=== PATIENT | female | born 1945 | race Caucasian/White ===

== ENCOUNTER 2019-12-28 19:04 | Inpatient (IN) | payer MEDICARE, SELFPAY ==
[2019-12-28 19:18] VITALS: BP 168/81; PULSE 89; RESP 14; TEMP 36.2; O2SAT 96; BMI 30.7
[2019-12-28 20:01] LABS: Basophils % 0.3 %; Eosinophils % 0.4 %; Hematocrit 46.1 % (37.0-47.0); Hemoglobin 14.8 g/dL (11.5-15.3); Lymphocytes # 1.5 10^3/uL (0.8-4.8); Lymphocytes % 19.2 %; Mean Corpuscular HGB Conc 32.1 g/dL (30.0-36.0); Mean Corpuscular Hemoglobin 30.9 pg (28.0-34.0); Mean Corpuscular Volume 96.2 fL (81-99); Mean Platelet Volume 10.3 fL (7.4-10.4); Monocytes # 0.7 10^3/uL (0.2-0.9); Monocytes % 9.5 %; Neutrophils # 5.4 10^3/uL (1.8-7.7); Neutrophils % 70.3 %; Nucleated Red Blood Cells % 0 %; Platelet Count 198 10^3/cmm (130-400); Red Blood Count 4.79 10^6/uL (4.1-5.3); Red Cell Distribution Width 12.9 % (12.1-15.1); White Blood Count 7.7 10^3/uL (4.0-10.0)
[2019-12-28 20:17] LABS: Alanine Aminotransferase 17 U/L (0-33); Albumin Level 4.4 g/dL (3.5-5.2); Alkaline Phosphatase 47 IU/L (35-105); Anion Gap 19.1 (5-19); Aspartate Amino Transferase 16 U/L (0-32); Blood Urea Nitrogen 13 mg/dL (8-23); Calcium 10.1 mg/dL (8.5-10.5); Carbon Dioxide 30 mmol/L (22-29); Chloride 100 mmol/L (98-107); Globulin 2.5 g/dL (1.3-4.6); Glucose 130 mg/dL (65-115); Lipase 18 U/L (13-60); Osmolality Calculated 298 mOsm/kg (285-295); Potassium 4.1 mmol/L (3.5-5.1); Sodium 145 mmol/L (136-145); Total Bilirubin 0.9 mg/dL (0.15-1.2); Total Protein 6.9 g/dL (6.6-8.7)
[2019-12-28 21:16] VITALS: BP 152/86; PULSE 84; RESP 16; O2SAT 96
--- NOTE | 2019-12-28 21:38 | CTR_ITS ---
PROCEDURE INFORMATION: Exam: CT Abdomen And Pelvis With Contrast Exam date and time: 12/28/2019 10:25 PM Age: 74 years old Clinical indication: Abdominal pain; Generalized; Prior surgery; Surgery date: 6+ months; Surgery type: Colostomy, gb, appy; Patient HX: C/O abd pain w n/v; Additional info: Abdominal pain, nausea and vomiting. Prior bowel surgery TECHNIQUE: Imaging protocol: Computed tomography of the abdomen and pelvis with intravenous contrast. Radiation optimization: All CT scans at this facility use at least one of these dose optimization techniques: automated exposure control; mA and/or kV adjustment per patient size (includes targeted exams where dose is matched to clinical indication); or iterative reconstruction. Contrast material: OMNI 300; Contrast volume: 95 ml; Contrast route: 20G; COMPARISON: No relevant prior studies available. RADIATION DOSE METRICS: Total DLP: 1539.86 mGy-cm FINDINGS: Liver: Liver unremarkable. No visible hepatic mass or cystic structure. Gallbladder and bile ducts: Gallbladder contains at least 3 small gallstones. No gallbladder wall thickening or pericholecystic fluid. Moderate intra and extrahepatic biliary ectasia with the common bile duct measuring upwards of 12 mm. No visible choledocholithiasis, pancreatic head mass, or ampullary neoplasm. Potential distal common bile duct stricture/stenosis. Pancreas: Pancreas grossly unremarkable. No visible pancreatic ductal ectasia. Spleen: Two small splenic cyst most likely from old injury. Spleen otherwise normal. Adrenals: Adrenal glands unremarkable. Kidneys and ureters: Kidneys unremarkable. No hydronephrosis or perinephric fluid. Stomach and bowel: Extremely large left lower quadrant ventral hernia containing numerous colonic bowel loops to a colostomy. Ectatic loops of small bowel with fecalization of contents transition zone approximately low anterior pelvis near anterior abdominal suture lines. Decompressed distal jejunal and ileal loops. Adhesions anticipated etiology. Appendix: No evidence of appendicitis. Intraperitoneal space: No visible intraperitoneal ascites. Vasculature: Limited assessment lung bases reveals advanced coronary artery disease. Cardiac size upper limits of normal. No visible pericardial effusion. The abdominal aorta is nonaneurysmal but demonstrates advanced arterial sclerotic disease. Lymph nodes: Unremarkable. No enlarged lymph nodes. Bladder: Urinary bladder grossly unremarkable. Reproductive: Suspected status post hysterectomy. Bones/joints: Metal artifact from right total hip prosthesis limits assessment of the pelvis. Advanced degenerative disease and degenerative disc disease of the lumbar spine primary L3 through S1. Osteopenia. Facet arthrosis. Soft tissues: Left lower quadrant anterior abdominal wall mesh. The large ventral hernia has broken through the mesh. Other findings: Obesity. CT/CT abdomen pelvis w con* [id number] IMPRESSION: 1. Examination reveals evidence of a moderate grade partial small bowel obstruction transitioning at the approximate level of the distal jejunum. Transition zone approximately low anterior pelvis near the anterior abdominal suture line. 2. Extremely large left lower quadrant ventral hernia containing numerous colonic bowel loops to aid diverting colostomy. 3. Moderate intra and extrahepatic biliary ectasia. 4. Other nonurgent, nonemergent, chronic, and age related findings as detailed in text above. Radiation Dose CTDIVOL = (mGy): DLP = 1539.86 (mGy-cm)
[2019-12-28] MEDS: sodium chloride 0.9% 1,000 ML 999 ML IV (22:13)
[2019-12-28] MEDS: ondansetron 2 mg/ML SDV 2 mL 4 MG IVP (22:13)
[2019-12-28] MEDS: iohexol 300 mg/mL 100 mL Btl IV (22:35)
--- NOTE | 2019-12-28 23:13 | P.HP_ITS ---
Providers/Chief Complaint Primary Care Provider: Juan R Purvis DO Chief Complaint: upper abd and back pain History of Present Illness Maty Gama is a 74 year old female who carries history of colon cancer status post colectomy 1991 with diverting colostomy, type 2 diabetes, came in with chief complaint of abdominal pain. Patient is stating that she was in her usual state of health i.e. lives with her , independent for daily activities, has been tolerating her diet until this morning when she started experiencing abdominal pain. Her pain was 8/10 in the morning she was feeling nauseous, she did not experience any fever, chills but experienced one episode of vomiting when she arrived in the hospital, her vomitus contained bilious color and content. She did not notice any bleeding. Before this episode she juarez s been having loose stools as well, she is denying recent camping, use of antibiotics, blood in her stool. She has been noticing decreased output from her colostomy, she also get bowel movement on daily basis. Diagnosis in the ER revealed hypertension, afebrile status, EKG is pending, CT abdomen revealed moderate partial small bowel obstruction with increased ventral hernia content without incarceration Lactic acid normal There is concern of adhesion causing small bowel obstruction, Dr. Pompa has been notified Will put NG tube to suction and admit her to our medical/surgical floor Review of Systems ENMT: Denies: throat pain or uvular edema Card: Denies: chest pain or palpitations Resp: Denies: dyspnea GI: Reports: abdominal pain, nausea, vomiting and diarrhea : Denies: flank pain Musc: Denies: neck pain Skin/Breast: Reports: rash (Petechia purpura) and lesions Neuro: Denies: headache(s) Psych: Denies: anxiety Endo: Denies: polyuria Kasi/Lymph: Reports: easy bruising All/Imm: Denies: urticaria Medications/Allergies Home Medications Medication Instructions Recorded Confirmed Last Taken Type amlodipine 10 mg PO DAILY 12/28/19 12/28/19 12/28/19 History canagliflozin [Invokana] 300 mg PO DAILY 12/28/19 12/28/19 12/28/19 History insulin detemir U-100 [Levemir See Rx Instructions .ROUTE .COMPLEX 12/28/19 12/28/19 12/28/19 History FlexTouch U-100 Insuln] losartan 50 mg PO DAILY 12/28/19 12/28/19 12/28/19 History metformin 1,000 mg PO DAILY 12/28/19 12/28/19 12/28/19 History omeprazole 40 mg PO DAILY 12/28/19 12/28/19 12/28/19 History pravastatin 40 mg PO DAILY 12/28/19 12/28/19 12/28/19 History prednisone 40 mg PO DAILY 12/28/19 12/28/19 12/28/19 History sertraline [Zoloft] 25 mg PO DAILY 12/28/19 12/28/19 12/28/19 History triamcinolone acetonide See Rx Instructions .ROUTE .COMPLEX 12/28/19 12/28/19 12/28/19 History Allergies Allergy/AdvReac Type Severity Reaction Status Date / Time Sulfa (Sulfonamide Allergy ALGY-Rash Verified 12/28/19 21:54 Antibiotics) PFSH Acute PFSH: Medical History B12 deficiency Colorectal cancer Post resection and colostomy Degenerative joint disease Degenerative lumbar spine L3-S1 Hypertension Iron deficiency anemia Small bowel obstruction Type 2 diabetes mellitus Surgical History H/O colectomy H/O: hysterectomy History of total hip replacement Family History Brother Diabetes Denies family history of Cancer Social History Smoking and tobacco status: never smoked Alcohol intake: never Substance/Drug Use: never Household members: family Housing: House Vitals/I&O/Wt Last Vital Signs Temp 97.1 F L 12/28/19 19:18 Pulse 89 12/28/19 19:18 Resp 14 12/28/19 19:18 BP 168/81 12/28/19 19:18 Pulse Ox 96 12/28/19 19:18 Weight last 48 hrs Weight 86.183 kg Physical Exam Narrative: EXAM NARRATIVE: Head to toe examination Patient is sitting at the bedside without any active discomfort Obese elderly female S1, S2 without any signs of heart failure or murmur appreciated on auscultation Abdomen is distended, tender midepigastric and right lower quadrant area, colostomy bag draining feculent material, hyperactive bowel sounds, ventral hernia around stoma Neurologically nonfocal exam EOMI, PERRLA Bilateral breath sounds without any adventitious sounds No active restaurant distress Propine mood and affect Lower extremity shows linear skin rash which are nonpruritic but palpable, maculopapular rash Data : 12/28/19 19:49 12/28/19 19:49 A&P Assessment and plan (1) Partial small bowel obstruction: Status: Acute (2) Ventral hernia: Status: Acute (3) Skin rash: Status: Acute Additional A&P Information Partial small bowel obstruction Concern for adhesion to be the etiology because of transition zone Would place NG tube to decompress her stomach CT abdomen reveals bowel obstruction with increased ventral hernia content Analgesia with morphine and start bowel regimen once she is able to tolerate p.o. diet No electrolyte imbalance note Conservative management for now N.p.o., NG to suction We will start her on D5 half-normal Would avoid adding sliding scale to avoid hypoglycemia, I would feel much comfortable with hyperglycemia while patient is being managed in n.p.o. status than hypoglycemia. SCDs Skin rash: Nonpruritic palpable skin rash bilaterally Patient is not sure if she has been exposed to Theron leaves We will try topical steroid She recently finished prednisone 40 mg course, last dose was today Patient is stating that she has been having tachycardia more frequently, she is not sure if she was diagnosed with A. fib currently she is not on any anticoagulation or rate controlling medication SCDs and avoid DVT prophylaxis in case she will need surgical intervention because of adhesions causing SBO no sliding scale to avoid hypoglycemia Full code Attestations Medical Necessity Statement*: Anticipating stay in the hospital cross more than 2 midnights currently needs management for SBO Time Spent in Patient Care: (>than 50% of time spent in counselling and/or direct pt care on unit) . 50mins Coding Level of Care Code Acute Unified Communications Architect for Chg Fwd Diagnoses Partial small bowel obstruction K56.600 Ventral hernia K43.9 Skin rash R21
--- NOTE | 2019-12-28 23:38 | ED_ITS ---
HPI - Abdominal Pain General: Chief Complaint: Abdominal Pain Stated Complaint: upper abd and back pain Time Seen by Provider: 12/28/19 21:23 Source: patient and family Mode of arrival: ambulatory Limitations: no limitations History of Present Illness: HPI narrative: 74-year-old female patient with a history of diabetes mellitus, remote history of colon cancer status post bowel resection and diverting colostomy on the left complicated by a parastomal hernia. She presents to the emergency department with complaints of abdominal pain that started earlier today and has been worsening. The abdominal pain is in the upper abdomen and it radiates to the back. No fever, she has nausea but has only vomited once this evening while in the waiting room. She states her colostomy still functioning well. She does not think she had any questionable food intake. MD elicited complaint: abdominal pain Pertinent past history: other (colon cancer s/p bowel resection and colostomy) Location: Epigastric, LUQ and RUQ Severity: severe Quality: cramping Radiation: back Associated Symptoms: Reports GI cramping, nausea and vomiting; Denies chills, dysuria and fever(s) Review of Systems General: Reports: 10 or more systems reviewed and unremarkable except in HPI and below Const: Denies: fever(s), chills or body aches Card: Denies: palpitations, irregular heart rhythm, edema or swelling of feet/ankles Resp: Denies: dyspnea, productive cough or non-productive cough GI: Reports: nausea, vomiting and GI cramping : Denies: flank pain, difficulty voiding, dysuria, urinary frequency, urinary urgency or urinary hesitancy Musc: Denies: neck pain, back pain or extremity swelling Skin/Breast: Denies: rash, pruritus or erythema Neuro: Denies: headache(s), numbness in extremities or weakness in extremities Endo: Denies: polyuria, polydipsia or tired all the time [facility] PFSH: Medical History (Updated 12/28/19 @ 23:48 [place] Kenny Walden [place] [facility] [place] B[place] Colorectal cancer Post resection and colostomy Degenerative joint disease Degenerative lumbar spine L3-S1 Hypertension Iron deficiency anemia Small bowel obstruction Type 2 diabetes mellitus Surgical History (Updated 12/28/19 @ 23:16 by Kayce Del Toro MD) H/O colectomy H/O: hysterectomy History of total hip replacement Family History (Updated 12/28/19 @ 23:16 by Kayce Del Toro MD) Brother Diabetes Denies family history of Cancer Social History (Updated 12/28/19 @ 23:17 by Kayce Del Toro MD) Smoking and tobacco status: never smoked Alcohol intake: never Substance/Drug Use: never Household members: family Housing: House Physical Exam Const: COMMON NORMALS: no acute distress, average body habitus, patient oriented x3, no limitations, healthy appearing, alert and well nourished HENMT: COMMON NORMALS: normocephalic, atraumatic and moist oral mucous membranes HEAD & SCALP: normocephalic and atraumatic Neck/C-Spine: COMMON NORMALS: no meningeal signs and no JVD Resp: COMMON NORMALS: normal respiratory effort, No retractions, No use of accessory muscles, clear to auscultation bilaterally and percussion normal AUSCULTATION: clear to auscultation bilaterally PERCUSSION: percussion normal Cardio: COMMON NORMALS: no JVD, regular rate, regular rhythm, S1 normal heart sound present, S2 normal heart sound present, No gallops present (Cardio), No clicks present (Cardio), No murmurs present (Cardio), No rub (Cardio) and Peripheral pulses 2+ throughout RATE: regular rate RHYTHM: regular rhythm HEART SOUNDS: S1 normal heart sound present and S2 normal heart sound present PERIPHERAL PULSES: Peripheral pulses 2+ throughout GI: COMMON NORMALS: Soft to palpation, No hepatosplenomegaly present, no masses and no bruits INSPECTION: Yes visible herniation AUSCULTATION: Yes Hyperactive bowel sounds present PALPATION: Yes Soft to palpation, Yes Tenderness to palpation present (GI) (periumbilical) and Yes No hepatosplenomegaly present OTHER: Colostomy in her left lower quadrant. There is an obvious large parastomal hernia. She is tender in the periumbilical area. : COMMON NORMALS: Yes no CVA tenderness BLADDER/KIDNEY EXAM: Yes no CVA tenderness Back/Pelvis: COMMON NORMALS: no CVA tenderness Extremity: COMMON NORMALS: normal to inspection, full ROM, capillary refill normal, no calf tenderness and no pedal edema Neuro: COMMON NORMALS: patient oriented x3 SENSORIUM/ORIENTATION: Yes alert MENINGEAL SIGNS: Yes no meningeal signs Skin: COMMON NORMALS: no rashes or lesions noted, no wounds, turgor normal, no jaundice, no petechiae and no mottling GENERAL SKIN EXAM: no rashes or lesions noted and turgor normal Course Reevaluation(s): Reevaluation #1: Discussed her lab and imaging findings with her. She has a partial small bowel obstruction. She will need an NG tube to low intermittent suction and evaluation by surgeon. I advised that she will need to be admitted for further work-up. She voiced understanding and she is in agreement with the plan Time: 23:15 Consultations: Consultation #1: Discussed the patient with the hospitalist, and he kindly accepted the patient to his service Time: 23:10 Consultation #2: Discussed the patient with Dr. Pompa, surgeon. He agrees with admitting the patient to the hospitalist service and he will see the patient in the morning Time: 23:19 Vital Signs: Vital signs: Vital Signs Temperature 97.1 F L 12/28/19 19:18 Pulse Rate 89 12/28/19 19:18 Respiratory Rate 14 12/28/19 19:18 Blood Pressure 168/81 12/28/19 19:18 Pulse Oximetry 96 12/28/19 19:18 MDM - Abdominal Pain MDM Narrative: Medical decision making narrative: 74-year-old female patient with a partial small bowel obstruction. She is admitted to the hospitalist service and will also be evaluated by the surgeon in the morning. Medical Records: Attestation: I reviewed the patient's medical records. Lab Data: Attestation: I reviewed the patient's lab results. Labs: Lab Results 12/28/19 12/28/19 Range/Units 19:49 19:49 WBC 7.7 (4.0-10.0) 10^3/ uL RBC 4.79 (4.1-5.3) 10^6/u L Hgb 14.8 (11.5-15.3) g/dL Hct 46.1 (37.0-47.0) % MCV 96.2 (81-99) fL MCH 30.9 (28.0-34.0) pg MCHC 32.1 (30.0-36.0) g/dL RDW 12.9 (12.1-15.1) % Plt Count 198 (130-400) 10^3/c mm MPV 10.3 (7.4-10.4) fL Neut % (Auto) 70.3 % Lymph % (Auto) 19.2 % Bonner % (Auto) 9.5 % Eos % (Auto) 0.4 % Baso % (Auto) 0.3 % Neut # (Auto) 5.4 (1.8-7.7) 10^3/u L Lymph # (Auto) 1.5 (0.8-4.8) 10^3/u L Bonner # (Auto) 0.7 (0.2-0.9) 10^3/u L Eos # (Auto) 0.0 (0.0-0.8) 10^3/u L Baso # (Auto) 0.0 (0.0-0.1) 10^3/u L Nucleated RBC % (a uto) 0 % Nucleated RBCs # 0.0 /100WBC Sodium 145 (136-145) mmol/L Potassium 4.1 (3.5-5.1) mmol/L Chloride 100 (98-107) mmol/L Carbon Dioxide 30 H (22-29) mmol/L Anion Gap 19.1 H (5-19) BUN 13 (8-23) mg/dL Creatinine 0.7 (0.5-0.9) mg/dL Glucose 130 H (65-115) mg/dL Calculated Osmolal ity 298 H (285-295) mOsm/k g Calcium 10.1 (8.5-10.5) mg/dL Total Bilirubin 0.9 (0.15-1.2) mg/dL AST 16 (0-32) U/L ALT 17 (0-33) U/L Alkaline Phosphata se 47 (35-105) IU/L Total Protein 6.9 (6.6-8.7) g/dL Albumin 4.4 (3.5-5.2) g/dL Globulin 2.5 (1.3-4.6) g/dL Lipase 18 (13-60) U/L Imaging Data ^: CT Abd/Pel: Radiologist's impression: [address] [address] [address] Scan Report Signed Patient: Jolie GamaSharyn #: [id number] : 6Acct#:[id number] Age/Sex: 74 / FADM Date: 12/28/19 Loc: ERRoom/Bed: Attending Dr: Ordering Provider/Ordering MD: Kenny Walden MD, SINCERE Date of Service: 12/28/19 Procedure(s): CT abdomen pelvis w con* [id number] Accession Number(s): [id number] Report Number: [id number] PROCEDURE INFORMATION: Exam: CT Abdomen And Pelvis With Contrast Exam date and time: 12/28/2019 10:25 PM Age: 74 years old Clinical indication: Abdominal pain; Generalized; Prior surgery; Surgery date: 6+ months; Surgery type: Colostomy, gb, appy; Patient HX: C/O abd pain w n/v; Additional info: Abdominal pain, nausea and vomiting. Prior bowel surgery TECHNIQUE: Imaging protocol: Computed tomography of the abdomen and pelvis with intravenous contrast. Radiation optimization: All CT scans at this facility use at least one of these dose optimization techniques: automated exposure control; mA and/or kV adjustment per patient size (includes targeted exams where dose is matched to clinical indication); or iterative reconstruction. Contrast material: OMNI 300; Contrast volume: 95 ml; Contrast route: 20G; COMPARISON: No relevant prior studies available. RADIATION DOSE METRICS: Total DLP: 1539.86 mGy-cm FINDINGS: Liver: Liver unremarkable. No visible hepatic mass or cystic structure. Gallbladder and bile ducts: Gallbladder contains at least 3 small gallstones. No gallbladder wall thickening or pericholecystic fluid. Moderate intra and extrahepatic biliary ectasia with the common bile duct measuring upwards of 12 mm. No visible choledocholithiasis, pancreatic head mass, or ampullary neoplasm. Potential distal common bile duct stricture/stenosis. Pancreas: Pancreas grossly unremarkable. No visible pancreatic ductal ectasia. Spleen: Two small splenic cyst most likely from old injury. Spleen otherwise normal. Adrenals: Adrenal glands unremarkable. Kidneys and ureters: Kidneys unremarkable. No hydronephrosis or perinephric fluid. Stomach and bowel: Extremely large left lower quadrant ventral hernia containing numerous colonic bowel loops to a colostomy. Ectatic loops of small bowel with fecalization of contents transition zone approximately low anterior pelvis near anterior abdominal suture lines. Decompressed distal jejunal and ileal loops. Adhesions anticipated etiology. Appendix: No evidence of appendicitis. Intraperitoneal space: No visible intraperitoneal ascites. Vasculature: Limited assessment lung bases reveals advanced coronary artery disease. Cardiac size upper limits of normal. No visible pericardial effusion. The abdominal aorta is nonaneurysmal but demonstrates advanced arterial sclerotic disease. Lymph nodes: Unremarkable. No enlarged lymph nodes. Bladder: Urinary bladder grossly unremarkable. Reproductive: Suspected status post hysterectomy. Bones/joints: Metal artifact from right total hip prosthesis limits assessment of the pelvis. Advanced degenerative disease and degenerative disc disease of the lumbar spine primary L3 through S1. Osteopenia. Facet arthrosis. Soft tissues: Left lower quadrant anterior abdominal wall mesh. The large ventral hernia has broken through the mesh. Other findings: Obesity. CT/CT abdomen pelvis w con* [id number] IMPRESSION: 1. Examination reveals evidence of a moderate grade partial small bowel obstruction transitioning at the approximate level of the distal jejunum. Transition zone approximately low anterior pelvis near the anterior abdominal suture line. 2. Extremely large left lower quadrant ventral hernia containing numerous colonic bowel loops to aid diverting colostomy. 3. Moderate intra and extrahepatic biliary ectasia. 4. Other nonurgent, nonemergent, chronic, and age related findings as detailed in text above. Radiation Dose CTDIVOL = (mGy): DLP = 1539.86 (mGy-cm) Dictated By:Denny Mccray Signed By:Denny MccraySigncarlo Date/Time:12/28/192253 DD/ 52 Discharge Plan Discharge Patient Disposition: Admitted As Inpatient Clinical Impression: Partial small bowel obstruction Parastomal hernia Qualifiers: Obstruction and gangrene presence: without obstruction or gangrene Qualified Co de(s): K43.5 - Parastomal hernia without obstruction or gangrene Condition: Stable Coding Level of Care Code ED Manager Of Customer Billing for Pravin Valerio
[2019-12-28 23:46] VITALS: BP 158/84; PULSE 88; RESP 16; O2SAT 97
[2019-12-29] VITALS (7 sets, daily range): BP systolic 132–166; BP diastolic 56–83; PULSE 72–93; RESP 16–18; TEMP 36.7–37.3; O2SAT 91–96
[2019-12-29 00:53] LABS: Bacteria Urine TRACE; Bilirubin Urine Neg (NEGATIVE); Blood Urine Neg (Negative); Glucose Urine UA 4+ (Normal); Ketones Urine Negative (Negative); Leukocyte Esterase Urine Negative (Negative); Nitrate Urine Negative (Negative); Protein Urine Neg (Negative); RBC Urine RARE /hpf (0-2); Squamous Epithelial Cell Urine RARE (0-5); Urine Appearance Clear (CLEAR); Urine Color Yellow (Yellow); Urobilinogen Urine Norm (Negative); WBC Urine RARE /hpf (0-5); pH Urine 8 (5-7)
[2019-12-29] MEDS: dextrose 5%-sod chloride 0.45% 1,000 ML 30 ML IV ×2 (03:06→17:51)
--- NOTE | 2019-12-29 09:26 | PC.CHAP ---
Pastoral Care Encounter/Spiritual Assessment Type of Contact [] Declined principal security architect visit [] Patient/Family/Request visit [] Outpatient visit [] Follow-up visit [] Physician referral [] Code/Alert [x] Routine visit [] Staff referral [] Actively dying [] Patient sleeping [] Family support [] [] Out of room [] Palliative care [] [] Receiving care in room [] Pre-surgical visit [] Trauma [] Long length of stay [] ICU visit [] Other: Relational/Emotional Strength [] Patient feels connected with others/family/visitors/staff [] Distress [] Loneliness/isolation [] Abandonment Spirituality of Patient [] Person of Monalisa [] Attends Sabianist of their Monalisa [] Believes in Prayer [] Reads Bible or Episcopalian materials [] There are Spiritual issues to be addressed Devops Developer Interventions [x] Prayer [] Active listening [] Non-anxious presence [] Spiritual/emotional support [] Crisis/trauma care [] Spiritual counseling [] Bereavement support [] Provided bereavement packet [] Provided Bible/devotional materials [] Provided toy/stuffed animal, coloring book to patient or family member [] Provided Communion [] Anointing/[place] [] Salvation [x] Completed spiritual assessment [] Other: Impact on Illness or Injury [] Angry [] Fearful [] Anxious [] Often cries [] Exhaustion [] Unable to work [] Unable to attend faith [] Unable to walk/stand [] Unable to read [] Unable to drive [] Unable to eat/drink [] Unable to sleep [] Unable to be with family [] Patient intubated [] Other: Summary Patient feeling better, feels issues are being addressed Time spent with patient 10 min
[2019-12-29 11:50] LABS: Glucose Point of Care 184 mg/dL (70-110)
--- NOTE | 2019-12-29 13:37 | PM.CONSULT ---
Providers/Reason For Consult Consulting Physican/Specialty*: Small bowel obstruction requiring continued inpatient hospitalization to ensure resolution Reason for Consult*: Bowel obstruction Attending Physician: Vikki Stone MD Primary Care Provider: Juan R Purvis DO History of Present Illness History of Present Illness Maty Gama is a 74 year old female who presented to the ER last night with generalized abdominal pain. Patient states that she had a colectomy for colorectal cancer in 1991 with end colostomy. She subsequently developed a parastomal hernia which was repaired about 15 years ago. She is not had any hospitalization for small bowel obstruction. At present she denies any nausea or vomiting, NG output was 500 cc since hospitalization. Patient's ostomy is functioning Review of Systems General: Reports: 10 or more systems reviewed and unremarkable except in HPI and below Meds/Allergies Home Medications and Allergies Home Medications Medication Instructions Recorded Confirmed Last Taken Type amlodipine 10 mg PO DAILY 12/28/19 12/28/19 12/28/19 History canagliflozin [Invokana] 300 mg PO DAILY 12/28/19 12/28/19 12/28/19 History insulin detemir U-100 [Levemir See Rx Instructions .ROUTE .COMPLEX 12/28/19 12/28/19 12/28/19 History FlexTouch U-100 Insuln] losartan 50 mg PO DAILY 12/28/19 12/28/19 12/28/19 History metformin 1,000 mg PO DAILY 12/28/19 12/28/19 12/28/19 History omeprazole 40 mg PO DAILY 12/28/19 12/28/19 12/28/19 History pravastatin 40 mg PO DAILY 12/28/19 12/28/19 12/28/19 History prednisone 40 mg PO DAILY 12/28/19 12/28/19 12/28/19 History sertraline [Zoloft] 25 mg PO DAILY 12/28/19 12/28/19 12/28/19 History triamcinolone acetonide See Rx Instructions .ROUTE .COMPLEX 12/28/19 12/28/19 12/28/19 History Allergies Allergy/AdvReac Type Severity Reaction Status Date / Time Sulfa (Sulfonamide Allergy ALGY-Rash Verified 12/28/19 21:54 Antibiotics) Current Medications Current Medications Generic Name Dose Route Start Last Admin Trade Name Freq PRN Reason Stop Dose Admin Dextrose/Sodium Chloride 1,000 mls @ 30 mls/hr 12/29/19 02:13 12/29/19 03:06 Dextrose 5%-Sod Chloride 0.45% IV 30 mls/hr .Q24H ALYSSA Administration Insulin Aspart 0 unit 12/29/19 12:00 12/29/19 12:31 Novolog SUBCUT 4 unit TIDWM ALYSSA Administration Protocol Senna/Docusate Sodium 1 tab 12/29/19 09:00 12/29/19 03:07 Senna-S PO Not Given DAILY ALYSSA Triamcinolone Acetonide 1 applic 12/29/19 09:00 12/29/19 08:43 Triamcinolone 0.1% Oint TOPICAL 1 applic BID ALYSSA Administration PFSH Acute PFSH: Medical History B12 deficiency Colorectal cancer Post resection and colostomy Degenerative joint disease Degenerative lumbar spine L3-S1 Hypertension Iron deficiency anemia Small bowel obstruction Type 2 diabetes mellitus Surgical History H/O colectomy H/O: hysterectomy History of total hip replacement Family History Brother Diabetes Denies family history of Cancer Social History Smoking and tobacco status: never smoked Alcohol intake: never Substance/Drug Use: never Household members: family Housing: House Vitals/I&O/Wt Last Vital Signs Temp 99.1 F 12/29/19 12:00 Pulse 80 12/29/19 12:00 Resp 18 12/29/19 12:00 BP 132/56 12/29/19 12:00 Pulse Ox 92 12/29/19 12:00 12/28/19 12/29/19 12/29/19 22:59 06:59 14:59 Intake Total 120 / 120 Output Total 1200 / 1200 Balance -1200 / -1200 120 / 120 Weight last 48 hrs Weight 190 lb Physical Exam Narrative: EXAM NARRATIVE: HEENT: Normocephalic Eye: Sclera /conjunctiva normal Respiratory and chest: Bilateral clear breath sounds on auscultation Cardiovascular: Normal S1 and S2 heart sounds Abdomen: Soft to palpation, large parastomal hernia in the left lower quadrant, colostomy has small amount of output Neurological: Oriented to place person and time Skin: Intact, no lesions appreciated on gross exam Urinary Catheter Management^: 2-way Urethral: Cath Placed During This Visit: yes Urinary Catheter Date of Insertion: 12/29/19 Urinary Catheter Time of Insertion: 03:00 A&P Assessment and plan (1) Partial small bowel obstruction: Likely secondary to adhesions NG tube removed with suction Repeat abdominal series in the morning Hopefully patient's small bowel obstruction will resolve with conservative measures Milk of molasses enema since there was large amount of stool noted within the colon Status: Acute (2) Parastomal hernia: Chronic containing large amount of bowel, not the site of the obstruction. Continue observation Status: Acute Qualifiers: Obstruction and gangrene presence: without obstruction or gangrene Qualified Code(s): K43.5 - Parastomal hernia without obstruction or gangrene Coding Level of Care Code Acute Community Relations Specialist for [facility] Fwd Diagnoses Partial small bowel obstruction K56.600 Parastomal hernia K43.5 Obstruction and gangrene presence: without obstruction or gangrene
[2019-12-29 16:52] LABS: Glucose Point of Care 143 mg/dL (70-110)
--- NOTE | 2019-12-29 17:41 | PM.PN ---
Subjective Subjective: Interval history: Patient feeling better from an abdominal discomfort. Has some irritation in her throat from NG tube. Asking for ice chips. NG-tube remains to intermittent suction. Vitals/I&O/Wt Last Vital Signs Temp 98.6 F 12/29/19 15:00 Pulse 77 12/29/19 15:00 Resp 18 12/29/19 15:00 BP 134/69 12/29/19 15:00 Pulse Ox 91 12/29/19 15:00 12/29/19 12/29/19 12/29/19 06:59 14:59 22:59 Intake Total 120 / 120 Output Total 1200 / 1200 900 / 900 Balance -1200 / -1200 -780 / -780 Weight last 48 hrs Weight 86.183 kg Physical Exam Const: OTHER: Alert, oriented x3, cooperative HENMT: OTHER: NG tube in place to suction Neck/C-Spine: OTHER: Supple Resp: OTHER: Clear to auscultation bilaterally Cardio: OTHER: Regular rate and rhythm GI: OTHER: Abdomen soft, obese. Has large parastomal hernia around ostomy site. This is not tender focally but generally uncomfortable for her. Multiple surgical scars. Some erythema noted under the pannus of the hernia : OTHER: Emery noted Extremity: NARRATIVE EXTREMITY EXAM: No cyanosis, clubbing or edema, no acute synovitis Neuro: OTHER: Face symmetric, speech clear, moves all extremities Psych: OTHER: Normal affect Skin: OTHER: Rash to legs Urinary Catheter Management^: 2-way Urethral: Cath Placed During This Visit: yes Urinary Catheter Date of Insertion: 12/29/19 Urinary Catheter Time of Insertion: 03:00 Data : 12/28/19 19:49 12/28/19 19:49 A&P Assessment and plan (1) Partial small bowel obstruction: Status: Acute (2) Parastomal hernia: Status: Chronic Qualifiers: Obstruction and gangrene presence: without obstruction or gangrene Qualified Code(s): K43.5 - Parastomal hernia without obstruction or gangrene (3) Colorectal cancer: Status: Chronic (4) Type 2 diabetes mellitus: Status: Chronic Qualifiers: Diabetes mellitus assistant terminal manager insulin use: without assistant terminal manager use Diabetes mellitus complication status: without complication Qualified Code(s): E11.9 - Type 2 diabetes mellitus without complications (5) Iron deficiency anemia: Status: Chronic Qualifiers: Iron deficiency anemia type: unspecified iron deficiency Qualified Code(s): D50.9 - Iron deficiency anemia, unspecified (6) B12 deficiency: Status: Chronic (7) Hypertension: Status: Chronic Qualifiers: Hypertension type: essential hypertension Qualified Code(s): I10 - Essential (primary) hypertension (8) Hyperlipidemia: Statin Status: Chronic Qualifiers: Hyperlipidemia type: unspecified Qualified Code(s): E78.5 - Hyperlipidemia, unspecified (9) Depression: Sertraline Status: Chronic Qualifiers: Depression Type: unspecified Qualified Code(s): F32.9 - Major depressive disorder, single episode, unspecified (10) Skin rash: Completed short course of prednisone on day of admission for this rash Status: Acute Additional A&P Information Appreciate Dr. Pompa's input To be given some enemas via ostomy site Continue NG tube placement We will add ice chips and some viscous lidocaine if that does not help her throat Emery catheter was placed with reason not indicated that I can find. I believe it is because she was placed in bed rest and having difficulty getting up with NG tube in place combined with obstruction. Remove as soon as able. Sliding scale insulin for diabetes currently, will hold on long-acting until taking p.o. Continue steroid cream to rash on legs Add PPI p.o. or IV H2 radha if it is still in shortage All home oral medications are otherwise held Supportive care otherwise IPC's for DVT prophylaxis presently Full code Attestations Medical Necessity Statement*: Requires ongoing inpatient stay for management of small bowel obstruction with plans as noted Coding Level of Care Code Acute Law Firm Consultant for [facility] Fwd Diagnoses Partial small bowel obstruction K56.600 Parastomal hernia K43.5 Obstruction and gangrene presence: without obstruction or gangrene Colorectal cancer C19 Type 2 diabetes mellitus E11.9 Diabetes mellitus fci insulin use: without fci use Diabetes mellitus complication status: without complication Iron deficiency anemia D50.9 Iron deficiency anemia type: unspecified iron deficiency B12 deficiency E53.8 Hypertension I10 Hypertension type: essential hypertension Hyperlipidemia E78.5 Hyperlipidemia type: unspecified Depression F32.9 Depression Type: unspecified Skin rash R21
[2019-12-29 22:34] LABS: Glucose Point of Care 118 mg/dL (70-110)
[2019-12-30] VITALS (7 sets, daily range): BP systolic 132–162; BP diastolic 60–76; PULSE 70–79; RESP 16–18; TEMP 36.8–37.2; O2SAT 92–96
[2019-12-30 05:28] LABS: Basophils % 0.5 %; Eosinophils # 0.1 10^3/uL (0.0-0.8); Eosinophils % 2.1 %; Hematocrit 40.7 % (37.0-47.0); Hemoglobin 12.8 g/dL (11.5-15.3); Lymphocytes # 1.3 10^3/uL (0.8-4.8); Lymphocytes % 23.4 %; Mean Corpuscular HGB Conc 31.4 g/dL (30.0-36.0); Mean Corpuscular Hemoglobin 30.8 pg (28.0-34.0); Mean Corpuscular Volume 97.8 fL (81-99); Mean Platelet Volume 10.6 fL (7.4-10.4); Monocytes # 0.6 10^3/uL (0.2-0.9); Monocytes % 10.7 %; Neutrophils # 3.6 10^3/uL (1.8-7.7); Neutrophils % 62.8 %; Nucleated Red Blood Cells % 0 %; Platelet Count 157 10^3/cmm (130-400); Red Blood Count 4.16 10^6/uL (4.1-5.3); Red Cell Distribution Width 13.3 % (12.1-15.1); White Blood Count 5.7 10^3/uL (4.0-10.0)
[2019-12-30 06:10] LABS: Anion Gap 15.3 (5-19); Blood Urea Nitrogen 14 mg/dL (8-23); Calcium 8.5 mg/dL (8.5-10.5); Carbon Dioxide 26 mmol/L (22-29); Chloride 106 mmol/L (98-107); Glucose 134 mg/dL (65-115); Osmolality Calculated 296 mOsm/kg (285-295); Potassium 3.3 mmol/L (3.5-5.1); Sodium 144 mmol/L (136-145)
--- NOTE | 2019-12-30 06:14 | XRR_ITS ---
PROCEDURE INFORMATION: Exam: XR Abdomen, 2 Views Exam date and time: 12/30/2019 6:17 AM Age: 74 years old Clinical indication: Other: Sbo; Prior surgery; Surgery date: 6+ months; Surgery type: Colostomy, gb, appendectomy TECHNIQUE: Imaging protocol: XR of the abdomen. Views: 2 Views. COMPARISON: CT abdomen pelvis w con* [id number] 12/28/2019 10:24 PM FINDINGS: Tubes, catheters and devices: Termination of feeding tube in the distal gastric body. Gastrointestinal tract: Poor visualization of CT detected small-bowel dilatation, in part due to patient body habitus . Organs: Cholelithiasis. Bones/joints: Right hip arthroplasty. Degenerative change and mild lumbar levoscoliosis. XR/XR abdomen min 2V [id number] IMPRESSION: Termination of feeding tube in the distal gastric body.
[2019-12-30 06:55] LABS: Glucose Point of Care 122 mg/dL (70-110)
[2019-12-30] MEDS: pantoprazole 40 mg SDV IVP (09:03)
[2019-12-30] MEDS: magnesium citrate Btl 296 mL PO ×2 (10:42→18:08)
[2019-12-30 11:17] LABS: Glucose Point of Care 111 mg/dL (70-110)
--- NOTE | 2019-12-30 11:42 | PM.PN ---
Subjective Subjective: Interval history: Patient has been doing well, abdominal pain is significantly reduced, no significant output from the NG tube . Responded with improved stool output after the enema was placed Vitals/I&O/Wt Last Vital Signs Temp 98.2 F 12/30/19 11:07 Pulse 79 12/30/19 11:07 Resp 18 12/30/19 11:07 BP 152/70 12/30/19 11:07 Pulse Ox 95 12/30/19 11:07 12/29/19 12/30/19 12/30/19 22:59 06:59 14:59 Intake Total 442.5 / 562.5 Output Total 250 / 1700 550 / 1700 Balance 192.5 / -1137.5 -550 / -1137.5 Weight last 48 hrs Weight 190 lb Physical Exam Narrative: EXAM NARRATIVE: Abdomen: Soft, nondistended, minimally tender, ostomy is functioning Urinary Catheter Management^: 2-way Urethral: Cath Placed During This Visit: yes Reason for Continuing Indwelling Catheter: Other Urinary Catheter Date of Insertion: 12/29/19 Urinary Catheter Time of Insertion: 03:00 Data : 12/30/19 04:21 12/30/19 04:21 A&P Assessment and plan (1) Partial small bowel obstruction: Likely secondary to adhesions Clamp NG tube today Start clear liquid diet 1 bottle magnesium citrate Milk of molasses enema through colostomy Status: Acute (2) Parastomal hernia: Chronic containing large amount of bowel, not the site of the obstruction. Continue observation Status: Chronic Qualifiers: Obstruction and gangrene presence: without obstruction or gangrene Qualified Code(s): K43.5 - Parastomal hernia without obstruction or gangrene Attestations Medical Necessity Statement*: Small bowel obstruction requiring continued inpatient stay, appears to be improving Coding Level of Care Code Acute Chemical Dependency Therapist for [facility] Diagnoses Partial small bowel obstruction K56.600 Parastomal hernia K43.5 Obstruction and gangrene presence: without obstruction or gangrene
--- NOTE | 2019-12-30 14:06 | P.PN_ITS ---
Subjective Subjective: Interval history: Feels a lot better today. Has had good output from her ostomy. Pain is improved. Vitals/I&O/Wt Last Vital Signs Temp 98.2 F 12/30/19 11:07 Pulse 79 12/30/19 11:07 Resp 18 12/30/19 11:07 BP 152/70 12/30/19 11:07 Pulse Ox 95 12/30/19 11:07 12/29/19 12/30/19 12/30/19 22:59 06:59 14:59 Intake Total 442.5 / 562.5 Output Total 250 / 1150 550 / 1700 Balance 192.5 / -587.5 -550 / -1137.5 Weight last 48 hrs Weight 86.183 kg Physical Exam Const: OTHER: Alert, oriented x3, cooperative HENMT: OTHER: NG tube in place to suction Neck/C-Spine: OTHER: Supple Resp: OTHER: Clear to auscultation bilaterally Cardio: OTHER: Regular rate and rhythm GI: OTHER: Abdomen soft, obese. Parastomal hernia is softer today and stool output in the ostomy is not as hard. : OTHER: Emery noted Extremity: NARRATIVE EXTREMITY EXAM: No cyanosis, clubbing or edema, no acute synovitis Neuro: OTHER: Face symmetric, speech clear, moves all extremities Psych: OTHER: Normal affect Skin: OTHER: Rash to legs without change Urinary Catheter Management^: 2-way Urethral: Cath Placed During This Visit: yes Reason for Continuing Indwelling Catheter: Other Urinary Catheter Date of Insertion: 12/29/19 Urinary Catheter Time of Insertion: 03:00 Data : 12/30/19 04:21 12/30/19 04:21 A&P Assessment and plan (1) Partial small bowel obstruction: Status: Acute (2) Parastomal hernia: Status: Chronic Qualifiers: Obstruction and gangrene presence: without obstruction or gangrene Qualified Code(s): K43.5 - Parastomal hernia without obstruction or gangrene (3) Colorectal cancer: Status: Chronic (4) Type 2 diabetes mellitus: Status: Chronic Qualifiers: Diabetes mellitus care home insulin use: without care home use Diabetes mellitus complication status: without complication Qualified Code(s): E11.9 - Type 2 diabetes mellitus without complications (5) Iron deficiency anemia: Status: Chronic Qualifiers: Iron deficiency anemia type: unspecified iron deficiency Qualified Code(s): D50.9 - Iron deficiency anemia, unspecified (6) B12 deficiency: Status: Chronic (7) Hypertension: Status: Chronic Qualifiers: Hypertension type: essential hypertension Qualified Code(s): I10 - Essential (primary) hypertension (8) Hyperlipidemia: Statin Status: Chronic Qualifiers: Hyperlipidemia type: unspecified Qualified Code(s): E78.5 - Hyperlipidemia, unspecified (9) Depression: Sertraline Status: Chronic Qualifiers: Depression Type: unspecified Qualified Code(s): F32.9 - Major depressive disorder, single episode, unspecified (10) Skin rash: Completed short course of prednisone on day of admission for this rash Status: Acute Additional A&P Information Dr. Pompa following, getting additional enema/laxative today NG tube clamped and clear liquid diet to start If doing okay in the morning need to discontinue Emery catheter since she has improved so much Sliding scale insulin for diabetes currently, monitor need to adjust insulin therapy with oral intake Adjust IV fluids for oral intake Continue steroid cream to rash on legs IV PPI See if some potassium today All home oral medications are otherwise still held Supportive care otherwise IPC's for DVT prophylaxis presently Plans discussed with patient as well as with Dr. Pompa Full code Attestations Medical Necessity Statement*: Requires ongoing inpatient care for continued la xative therapy, diet advancement and monitoring for recurrent problems with obstruction Coding Level of Care Code Acute Certified Shorthand Reporter for [facility] Fwd Diagnoses Partial small bowel obstruction K56.600 Parastomal hernia K43.5 Obstruction and gangrene presence: without obstruction or gangrene Colorectal cancer C19 Type 2 diabetes mellitus E11.9 Diabetes mellitus intermediate accountant insulin use: without intermediate accountant use Diabetes mellitus complication status: without complication Iron deficiency anemia D50.9 Iron deficiency anemia type: unspecified iron deficiency B12 deficiency E53.8 Hypertension I10 Hypertension type: essential hypertension Hyperlipidemia E78.5 Hyperlipidemia type: unspecified Depression F32.9 Depression Type: unspecified Skin rash R21
[2019-12-30 16:55] LABS: Glucose Point of Care 132 mg/dL (70-110)
[2019-12-30 21:23] LABS: Glucose Point of Care 168 mg/dL (70-110)
[2019-12-30] MEDS: D5-NS 0.45% + KCL 20 mEq 20 MEQ/1,000 ML BAG 75 MEQ IV (23:34)
[2019-12-30] MEDS: lidocaine 2% viscous 15 mL UDC 5 ML MUCOUS MEM (23:34)
[2019-12-31 03:40] VITALS: BP 137/68; PULSE 69; RESP 18; TEMP 37.2; O2SAT 93
[2019-12-31 06:13] LABS: Glucose Point of Care 155 mg/dL (70-110)
[2019-12-31 07:44] VITALS: BP 153/71; PULSE 76; RESP 16; TEMP 36.8; O2SAT 91
--- NOTE | 2019-12-31 07:57 | P.PN_ITS ---
Subjective Subjective: Interval history: Patient denies any abdominal pain, feels a lot better, had significant output from the ostomy Vitals/I&O/Wt Last Vital Signs Temp 98.2 F 12/31/19 07:44 Pulse 76 12/31/19 07:44 Resp 16 12/31/19 07:44 BP 153/71 12/31/19 07:44 Pulse Ox 91 12/31/19 07:44 12/30/19 12/31/19 12/31/19 22:59 06:59 14:59 Intake Total 480 / 800 Output Total 4100 / 5000 900 / 5000 Balance -4100 / -4200 -420 / -4200 Physical Exam Narrative: EXAM NARRATIVE: Abdomen: Soft, nontender, less distended, large parastomal hernia with ostomy functioning well, has liquid stools in the bag Urinary Catheter Management^: 2-way Urethral: Cath Placed During This Visit: yes Reason for Continuing Indwelling Catheter: Other Urinary Catheter Date of Insertion: 12/29/19 Urinary Catheter Time of Insertion: 03:00 Data : 12/30/19 04:21 12/30/19 04:21 A&P Assessment and plan (1) Partial small bowel obstruction: Likely secondary to adhesions resolved DC home today on aggressive bowel regimen Follow-up PRN Status: Acute (2) Parastomal hernia: Chronic containing large amount of bowel, not the site of the obstruction. Continue observation Status: Chronic Qualifiers: Obstruction and gangrene presence: without obstruction or gangrene Qualified Code(s): K43.5 - Parastomal hernia without obstruction or gangrene Attestations Medical Necessity Statement*: Small bowel obstruction, resolved Coding Level of Care Code Acute Vegetable I Farmworker for [facility] Fwd Diagnoses Partial small bowel obstruction K56.600 Parastomal hernia K43.5 Obstruction and gangrene presence: without obstruction or gangrene
[2019-12-31] MEDS: pantoprazole 40 mg SDV IVP (08:32)
[2019-12-31] MEDS: lactulose oral liq 20 gm/30 mL UDC 10 GM PO (08:33)
[2019-12-31] MEDS: sennosides-docusate Tablet 1 TAB PO (08:33)
[2019-12-31 11:07] VITALS: BP 134/75; PULSE 83; RESP 22; TEMP 37.2
[2019-12-31 11:22] LABS: Glucose Point of Care 293 mg/dL (70-110)
--- NOTE | 2019-12-31 12:14 | PC.SOCIAL ---
IMM Update Pg 2 of IMM given and explained to patient who verbalized understanding. Copy provided.
[2019-12-31 15:27] VITALS: BP 166/68; PULSE 71; RESP 18; TEMP 37; O2SAT 96
--- NOTE | 2019-12-31 16:01 | PM.DCS ---
Discharge Providers Date of Admission: 12/28/19 23:18 Date of Discharge: December 31, 2019 Attending Provider at Admission: Kayce Del Toro MD Attending Provider at Discharge: Vikki Stone MD Primary Care Provider: Juan R Purvis DO Diagnoses at Discharge Discharge Diagnosis (1) Partial small bowel obstruction: Status: Acute (2) Parastomal hernia: Status: Chronic Qualifiers: Obstruction and gangrene presence: without obstruction or gangrene Qualified Code(s): K43.5 - Parastomal hernia without obstruction or gangrene (3) Colorectal cancer: Status: Chronic Problem details: Post resection and colostomy (4) Type 2 diabetes mellitus: Status: Chronic Qualifiers: Diabetes mellitus complication status: without complication Diabetes mellitus fci insulin use: without remote computer terminal operator use Qualified Code(s): E11.9 - Type 2 diabetes mellitus without complications (5) Iron deficiency anemia: Status: Chronic Qualifiers: Iron deficiency anemia type: unspecified iron deficiency Qualified Code(s): D50.9 - Iron deficiency anemia, unspecified (6) B12 deficiency: Status: Chronic (7) Hypertension: Status: Chronic Qualifiers: Hypertension type: essential hypertension Qualified Code(s): I10 - Essential (primary) hypertension (8) Hyperlipidemia: Status: Chronic Qualifiers: Hyperlipidemia type: unspecified Qualified Code(s): E78.5 - Hyperlipidemia, unspecified (9) Depression: Status: Chronic Qualifiers: Depression Type: unspecified Qualified Code(s): F32.9 - Major depressive disorder, single episode, unspecified (10) Skin rash: Status: Acute Reason for Visit Reason for Visit: upper abd and back pain Hospital Course Hospital Course: Mrs. Gama was admitted to a medical bed show small bowel obstruction as well as a parastomal hernia containing a lot of stool. NG tube was placed with good drainage of stomach contents. She also initially had a Emery catheter. Laxative therapy was initiated including enemas via the ostomy. Hard stool was obtained and then thinned out. Her parastomal hernia is soft and. Dr. Pompa followed along. The suspicion is that the actual partial small bowel obstruction was caused by adhesions. The significant constipation in the parastomal hernia area was a different process. After couple of days of treatment, patient was having more consistent soft stool output. NG tube was clamped and subsequently discontinued. She was tolerating liquid diet. She was felt stable for discharge. It was recommended that she follow clear liquid and then full liquid diet very slowly increasing to more solid oral intake. She was agreeable with this.. She was alert and oriented, smiling, with clear lungs and a regular rhythm. She has a lot of surgical scars on her abdomen. In the left lower quadrant she has her ostomy site. Around this she has a large hernia. Physical Exam Urinary Catheter Management^: 2-way Urethral: Cath Placed During This Visit: yes, but has since been removed by the nurse Reason for Continuing Indwelling Catheter: Does Not Meet Criteria Urinary Catheter Date of Insertion: 12/29/19 Urinary Catheter Time of Insertion: 03:00 Date Urinary Catheter Removed: 12/31/19 Time Urinary Catheter Discontinued: 09:00 Discharge Data Data Completed and Pending: Completed Studies During Hospitalization Category Date Time Status CT abdomen pelvis w con* [id number] Stat Cat Scan 12/28/19 21:38 Completed XR abdomen min 2V [id number] Routine Exams 12/30/19 06:14 Completed Labs from last 24 hours 12/31/19 12/31/19 12/30/19 11:09 06:08 21:17 POC Glucose 293 155 168 12/30/19 16:43 POC Glucose 132 Vitals: Last Vital Signs Temp 98.6 F 12/31/19 15:27 Pulse 71 12/31/19 15:27 Resp 18 12/31/19 15:27 BP 166/68 12/31/19 15:27 Pulse Ox 96 12/31/19 15:27 Discharge Plan Discharge Patient Disposition: Home, Self-Care Condition: Stable Prescriptions: New lactulose 20 gram/30 mL Solution 10 g PO Q12H Qty: 1500 RF: 0 sennosides-docusate sodium 8.6-50 mg Tablet 1 tab PO DAILY Qty: 30 RF: 0 Continued losartan 50 mg tablet 50 mg PO DAILY RF: 0 pravastatin 40 mg tablet 40 mg PO DAILY RF: 0 omeprazole 40 mg capsule,delayed release(DR/EC) 40 mg PO DAILY RF: 0 amlodipine 10 mg tablet 10 mg PO DAILY RF: 0 metformin 1,000 mg tablet 1,000 mg PO DAILY RF: 0 triamcinolone acetonide 0.1 % ointment See Rx Instructions .ROUTE .COMPLEX RF: 0 Zoloft 25 mg tablet 25 mg PO DAILY RF: 0 Levemir FlexTouch U-100 Insuln 100 unit/mL (3 mL) insulin pen See Rx Instructions .ROUTE .COMPLEX RF: 0 Invokana 300 mg tablet 300 mg PO DAILY RF: 0 Discontinued prednisone 20 mg tablet 40 mg PO DAILY RF: 0 Discharge Orders: Discharge Order (Routine); Ordered 12/31/19 Ordered By: Vikki Stone Referrals: Juan R Purvis, [Primary Care Provider] - 4-7 days (Please follow up with your primary care provider in 4-7 days. Post hospital stay. ) Discharge Diet: Full LIquid Discharge Activity: Resume usual activity Patient Instructions: Laxative, Stool Softeners (By mouth), Lactulose (By mouth), Bowel Obstruction (DC) Activity Restrictions/Additional Instructions: Dr. Pompa recommends full liquid diet with slow advance to a GI soft diet Continue lactulose to ensure loose stools through your ostomy for the next few weeks Follow-up with Dr. Purvis Discharge Date/Time: 12/31/19 17:25 Discharge Attestations Time Spent in Discharge Care*: less than 30 min Quality Metrics Clinical Quality Measures During this hospital stay, did patient experience: None Coding Level of Care Code Acute Park Activities Coordinator for [facility] Fwd Diagnoses Partial small bowel obstruction K56.600 Parastomal hernia K43.5 Obstruction and gangrene presence: without obstruction or gangrene Colorectal cancer C19 Type 2 diabetes mellitus E11.9 Diabetes mellitus complication status: without complication Diabetes mellitus remote computer terminal operator insulin use: without fci use Iron deficiency anemia D50.9 Iron deficiency anemia type: unspecified iron deficiency B12 deficiency E53.8 Hypertension I10 Hypertension type: essential hypertension Hyperlipidemia E78.5 Hyperlipidemia type: unspecified Depression F32.9 Depression Type: unspecified Skin rash R21
[2019-12-31 16:49] VITALS: BP 166/68; PULSE 71; RESP 18; TEMP 37; O2SAT 96
[2019-12-31 16:49] LABS: Glucose Point of Care 191 mg/dL (70-110)
--- NOTE | 2019-12-31 17:25 | PC.NURSE ---
Discharge instructions given to patient. voiced full understanding.IV dc'd cath intact bleeding controlled with 2x 2 and coban
[2019-12-31 18:16] VITALS: BP 166/68; PULSE 71; RESP 18; TEMP 37; O2SAT 96
== END 2019-12-31 17:25 | disposition home or self-care (01) | DRG 390 ==
LOC: ER 23:48 → MEDSURG 12-29 00:01
PROVIDERS: Emergency Medicine; Admitting Provider Internal Medicine; PCP Electrodiagnostic Medicine; Visit Provider Hospitalist
DX: K56.51 Intestinal adhesions [bands], with partial obstruction (principal); Z85.038 Personal history of other malignant neoplasm of large intestine; Z93.3 Colostomy status; E11.9 Type 2 diabetes mellitus without complications; I10 Essential (primary) hypertension; E53.8 Deficiency of other specified B group vitamins; M51.37 Other intervertebral disc degeneration, lumbosacral region; D50.9 Iron deficiency anemia, unspecified; Z96.649 Presence of unspecified artificial hip joint; R21 Rash and other nonspecific skin eruption; Z90.49 Acquired absence of other specified parts of digestive tract; K43.5 Parastomal hernia without obstruction or gangrene; E78.5 Hyperlipidemia, unspecified; F32.9 Major depressive disorder, single episode, unspecified; Z79.4 Long term (current) use of insulin
CPT/HCPCS: 12345; 36415; 36416; 51702; 74019; 74177; 80048; 80053; 81001; 82962; 83605; 83690; 85025; 96372; 96375; 97161; 97530; 99284; C9113; J1815; J2405; J3480; J7030; J7799; Q9967

== ENCOUNTER → 2020-02-27 09:10 | Outpatient (BNVA) | payer MEDICARE, SELFPAY | PROVIDERS: PCP Electrodiagnostic Medicine; Visit Provider Dermatology | DX: R21 Rash and other nonspecific skin eruption (principal); Z85.828 Personal history of other malignant neoplasm of skin | CPT/HCPCS: 11102; 88304; 99202; 99203 ==

== ENCOUNTER → 2020-03-12 08:42 | Outpatient (BNVA) | payer MEDICARE, SELFPAY | PROVIDERS: PCP Electrodiagnostic Medicine; Visit Provider Dermatology | DX: I87.2 Venous insufficiency (chronic) (peripheral) (principal) | CPT/HCPCS: 99213 ==

== ENCOUNTER → 2020-06-06 09:28 | Outpatient (BNVA) | payer MEDICARE, SELFPAY | PROVIDERS: PCP Electrodiagnostic Medicine; Visit Provider Specialist | DX: M25.551 Pain in right hip (principal); Z96.641 Presence of right artificial hip joint; K46.9 Unspecified abdominal hernia without obstruction or gangrene; M16.12 Unilateral primary osteoarthritis, left hip | CPT/HCPCS: 73502 ==

== ENCOUNTER 2020-06-24 09:17 | Outpatient (CLI) | payer MEDICARE, SELFPAY ==
--- NOTE | 2020-06-24 09:31 | MM_ITS ---
WS: [id number] BILATERAL DIGITAL SCREENING MAMMOGRAPHY WITH CAD CLINICAL INFORMATION: SCREENING HISTORY: Screening mammogram. No current complaints. COMPARISON: TECHNIQUE: Bilateral CC and MLO views. FINDINGS: Scattered fibroglandular densities bilaterally. No suspicious focal mass, asymmetry, calcifications, or architectural distortion. No evidence of malignancy. Punctate calcifications. Vascular calcificati ons. MM/[place] [id number] IMPRESSION: BI-RADS: 2-Benign FOLLOW UP: 1 Year Follow-up Recommend return to annual screening mammography.
== END 2020-06-24 09:18 | disposition home or self-care (01) ==
LOC: RADSHAW 09:19
PROVIDERS: PCP Electrodiagnostic Medicine; Visit Provider Electrodiagnostic Medicine
DX: Z12.31 Encounter for screening mammogram for malignant neoplasm of breast (principal)
CPT/HCPCS: 77067

== ENCOUNTER → 2020-07-29 16:27 | Outpatient (BNVA) | payer MEDICARE, SELFPAY | PROVIDERS: PCP Electrodiagnostic Medicine; Visit Provider Specialist | DX: M25.461 Effusion, right knee (principal); M25.562 Pain in left knee; M25.561 Pain in right knee | CPT/HCPCS: 73560; 73565 ==

== ENCOUNTER 2020-07-31 06:00 | Outpatient (RCR) | payer MEDICARE, SELFPAY | END 2020-08-18 23:59 | disposition home or self-care (01) | LOC: TPT 06:00 | PROVIDERS: PCP Electrodiagnostic Medicine; Referring Provider Specialist; Visit Provider Specialist | DX: M54.31 Sciatica, right side (principal); M54.9 Dorsalgia, unspecified | CPT/HCPCS: 97110; 97161 ==

== ENCOUNTER 2020-08-19 06:00 | Outpatient (RCR) | payer MEDICARE, SELFPAY | END 2020-09-15 23:59 | disposition home or self-care (01) | LOC: TPT 06:00 | PROVIDERS: PCP Electrodiagnostic Medicine; Referring Provider Specialist; Visit Provider Specialist | DX: M54.41 Lumbago with sciatica, right side (principal) | CPT/HCPCS: 97110 ==

== ENCOUNTER 2020-10-10 15:51 | Emergency (ER) | payer MEDICARE, SELFPAY ==
[2020-10-10 15:54] VITALS: BP 163/72; PULSE 82; RESP 18; TEMP 36.2; O2SAT 97; BMI 31.3
--- NOTE | 2020-10-10 16:38 | W.ED.FALL ---
Documented by User: CHELSI Oates 10/10/20 16:48 HPI - Fall General: Chief Complaint: Fall Stated Complaint: LT LEG/ FALL AT [facility] Time Seen by Provider: 10/10/20 16:35 Source: patient Mode of arrival: ambulatory Limitations: no limitations History of Present Illness: HPI Narrative: Patient is a very nice 74-year-old female who presents to ED today following a fall. Patient tells me she was at [facility] when she accidentally tripped and fell over a corner of a rug. Patient states she landed onto her left knee. She is complaining of pain here along with swelling. She has minor tenderness to her right knee, bilateral hands, and bilateral shoulders from trying to catch herself but reports full range of motion of these areas. Patient did not strike her head. No LOC. No neck or back pain. MD complaint: fall Onset (ago): hour(s) Fall from: standing Fall witnessed: yes, by bystander Place fall occurred: other ([facility]) Loss of consciousness: None Prolonged down time: no Symptoms prior to fall: none Context: tripped/slipped Location of injury - extremities: Left: knee Severity: severe Associated symptoms-after fall: Reports no associated symptoms; Denies chest pain or neck pain Review of Systems Eyes: Denies: change in vision Card: Denies: chest pain Resp: Denies: dyspnea Musc: Reports: joint pain (L knee), joint swelling (L knee) and limited range of motion (L knee secondary to pain); Denies: neck pain or back pain Neuro: Denies: numbness in extremities or sensory changes PFS ED PFSH: Medical History B12 deficiency Colorectal cancer Post resection and colostomy Degenerative joint disease Degenerative lumbar spine L3-S1 Depression Hyperlipidemia Hypertension Iron deficiency anemia Small bowel obstruction Type 2 diabetes mellitus Surgical History H/O colectomy H/O: hysterectomy History of total hip replacement Family History Brother Diabetes Denies family history of Ovarian cyst CAD (coronary artery disease) Clotting disorder Hyperlipidemia Chronic kidney disease (CKD) Anesthesia complication Family history of thyroid problem Bleeding disorder Lung disease Cancer Hypertension Stroke Social History Smoking and tobacco status: never smoked Alcohol intake: never Household members: family Housing: House Physical Exam Const: COMMON NORMALS: no acute distress, patient oriented x3, no limitations and alert GENERAL APPEARANCE: cooperative ORIENTATION/CONSCIOUSNESS: Yes awake, Yes oriented to person, Yes oriented to place and Yes oriented to time HENMT: COMMON NORMALS: normocephalic and atraumatic HEAD & SCALP: normocephalic and atraumatic Neck/C-Spine: COMMON NORMALS: full ROM CERVICAL SPINE: Yes cervical ROM normal and No Cervical spine tenderness Back/Pelvis: COMMON NORMALS: thoracic and lumbar spine normal to inspection, no thoracic nor lumbar tenderness and thoraco-lumbar ROM normal Extremity: COMMON NORMALS: full ROM GENERAL: Yes normal exam except as noted OTHER: full ROM of bilateral shoulders, elbows, wrists/hands; no significant tenderness to these areas; full ROM of R knee and bilateral hips; she has localized pain to her L knee with swelling; she is significantly tender to the anterior aspect; she has mild tenderness to L tib/fib; NV intact Neuro: REBECCA COMA SCALE: document [facility] findings [place] coma scale eye opening: Spontaneous Rebecca coma scale verbal response: Orientated [place] coma scale motor response: Obey commands Rebecca coma scale total score: 15 COMMON NORMALS: patient oriented x3 SENSORIUM/ORIENTATION: Yes alert, Yes oriented to person, Yes oriented to place and Yes oriented to time Skin: TRAUMA: no lacerations or abrasions Course Vital Signs: Vital signs: Vital Signs Temperature 97.1 F L 10/10/20 15:54 Pulse Rate 93 10/10/20 17:53 Respiratory Rate 18 10/10/20 17:53 Blood Pressure 155/55 10/10/20 17:53 Pulse Oximetry 95 10/10/20 17:53 Discharge Plan Discharge Patient Disposition: Home Clinical Impression: Fall against object Closed comminuted fracture of left patella Qualifiers: Encounter type: initial encounter Fracture alignment: nondisplaced Qualified Code(s): S82.045A - Nondisplaced comminuted fracture of left patella, initial encounter for closed fracture Condition: Stable Prescriptions: New hydrocodone-acetaminophen 5-325 mg tablet 1 tab PO Q4H PRN (Reason: pain) Qty: 10 RF: 0 No Action triamcinolone acetonide 0.1 % ointment 1 applic TOPICAL BID Qty: 80 RF: 1 aspirin [Iris Chewable Aspirin] 81 mg tablet,chewable 81 mg PO QAM RF: 0 betamethasone dipropionate 0.05 % ointment 1 applic topical BID PRN (Reason: skin irritation) Qty: 45 RF: 2 losartan 50 mg tablet 50 mg PO QAM RF: 0 pravastatin 40 mg tablet 40 mg PO QAM RF: 0 amlodipine 10 mg tablet 10 mg PO QAM RF: 0 metformin 1,000 mg tablet 1,000 mg PO BID RF: 0 sertraline [Zoloft] 25 mg tablet 25 mg PO BEDTIME RF: 0 Levemir FlexTouch U-100 Insuln 100 unit/mL (3 mL) insulin pen See Rx Instructions .ROUTE .COMPLEX RF: 0 Invokana 300 mg tablet 300 mg PO QAM RF: 0 omeprazole 40 mg Capsule,Delayed Release(Dr/Ec) 40 mg PO QAM RF: 0 Vitamin B-12 1 tab PO QAM RF: 0 Vitamin D3 1 cap PO QAM RF: 0 vitamin E 1 cap PO QAM RF: 0 Discharge Orders: Discharge ED (Routine); Ordered 10/10/20 Ordered By: Chelo Grijalva Referrals: Juan R Purvis DO [Primary Care Provider] - Discharge Diet: Usual diet Discharge Activity: Limit activity as instructed Patient Instructions: Patellar Fracture (ED), Knee Immobilizer (ED), Opioid Safety Activity Restrictions/Additional Instructions: phlebotomy services representative will be contacting you tomorrow for an appointment with Dr. Dan, allergy and immunology specialist Return to the emergency department if you develop worsening pain, redness swelling of the left lower leg or other concerning symptoms Hydrocodone can cause constipation, may need stool softener if constipation occurs Keep the left lower extremity elevated to decrease swelling which will help decrease pain. Apply cool compresses such as ice pack to the area several times daily which will help with swelling. Never apply ice directly to the skin. Coding Level of Care Code ED Burr Sander for Chg Fwd Exam Detailed Documented by User: Chelo Desai MORALES Grijalva 10/10/20 18:02 HPI - Fall General: Chief Complaint: Fall Stated Complaint: LT LEG/ FALL AT [facility] Time Seen by Provider: 10/10/20 16:35 [facility] ED PFSH: Medical History B12 deficiency Colorectal cancer Post resection and colostomy Degenerative joint disease Degenerative lumbar spine L3-S1 Depression Hyperlipidemia Hypertension Iron deficiency anemia Small bowel obstruction Type 2 diabetes mellitus Surgical History H/O colectomy H/O: hysterectomy History of total hip replacement Family History Brother Diabetes Denies family history of Ovarian cyst CAD (coronary artery disease) Clotting disorder Hyperlipidemia Chronic kidney disease (CKD) Anesthesia complication Family history of thyroid problem Bleeding disorder Lung disease Cancer Hypertension Stroke Social History Smoking and tobacco status: never smoked Alcohol intake: never Household members: family Housing: House Course ED course: 74-year-old female patient presents to the emergency department with complaints of left lower extremity pain status post fall at [facility]. She reports tripped fell, landing directly on the left knee. Commuted patellar fracture of the left knee appreciated on x-ray. She is tender over the area, anterior patella. I was not able to reproduce pain to the left knee, left ankle or left foot. She states has several walkers at home and feels she can ambulate with knee immobilizer and walker assistance. Social service referral for follow-up with Dr. Dan tomorrow completed. Neurovascular exam intact to the distal left lower extremity. Consultations: Consultation #1: Dr Dan -mechanism of injury discussed; x-ray results involving commuted patellar fracture left knee, advised patient to see him tomorrow in his office. Recommended knee immobilizer/walker. Time: 17:30 Vital Signs: Vital signs: Vital Signs Temperature 97.1 F L 10/10/20 15:54 Pulse Rate 93 10/10/20 17:53 Respiratory Rate 18 10/10/20 17:53 Blood Pressure 155/55 10/10/20 17:53 Pulse Oximetry 95 10/10/20 17:53 MDM - Fall Imaging Data^: Xray Ortho: Radiologist's impression: [address] [address] XRay Report Signed Patient: Maty Gama Unit #: [id number] : 1945 Age/Sex: 74 / F ADM Date: 10/10/20 Loc: ER Room/Bed: Attending Dr: Ordering Provider/Ordering MD: Dior Yu Date of Service: 10/10/20 Procedure(s): XR knee LT 3V* [id number] Accession Number(s): [id number] Report Number: [id number] PROCEDURE INFORMATION: Exam: XR Left Knee Exam date and time: 10/10/2020 5:11 PM Age: 74 years old Clinical indication: Injury or trauma; Fall; Blunt trauma; Knee; Left; Additional info: Fall, pain, swelling TECHNIQUE: Imaging protocol: XR Left knee. Views: 3 views. COMPARISON: CR XR knees AP WB w RT lmt ORTH 07/29/2020 4:33 PM FINDINGS: Bones/joints: Comminuted fracture of the patella. Femur intact. Tibia intact. Knee joint alignment unremarkable. Moderate knee joint effusion. Soft tissues: Soft tissue swelling anterior. XR/XR knee LT 3V* [id number] IMPRESSION: Comminuted fracture of the patella. Dictated By: Manpreet Toth Signed By: Manpreet Toth Signed Date/Time: 10/10/201724 DD/ 22 Other Imaging: Radiologist's impression: ADDENDUM XR/XR tibia fibula LT 2V [id number] Impression: Comminuted acute left patella fracture. Addendum Dictated By: Manpreet Toth Addendum Signed By: Manpreet Toth Signed Date/Time: 10/10/201725 Addendum Cosigned By: PROCEDURE INFORMATION: Exam: XR Left Tibia and Fibula Exam date and time: 10/10/2020 5:09 PM Age: 74 years old Clinical indication: Injury or trauma; Fall; Blunt trauma; Lower leg; Left; Additional info: Fall, pain TECHNIQUE: Imaging protocol: XR Left tibia and fibula. Views: 2 views. COMPARISON: CR XR knees AP WB w RT lmt ORTH 07/29/2020 4:33 PM FINDINGS: Bones/joints: Moderate knee joint osteoarthritis. No fractures. No aggressive bone lesion. Soft tissues: Scattered superficial soft tissue calcifications. XR/XR tibia fibula LT 2V [id number] IMPRESSION: Negative for acute fracture. Dictated By: Manpreet Toth Signed By: Manpreet Toth Discharge Plan Discharge Patient Disposition: Home Clinical Impression: Fall against object Closed comminuted fracture of left patella Qualifiers: Encounter type: initial encounter Fracture alignment: nondisplaced Qualified Code(s): S82.045A - Nondisplaced comminuted fracture of left patella, initial encounter for closed fracture Condition: Stable Prescriptions: New hydrocodone-acetaminophen 5-325 mg tablet 1 tab PO Q4H PRN (Reason: pain) Qty: 10 RF: 0 No Action triamcinolone acetonide 0.1 % ointment 1 applic TOPICAL BID Qty: 80 RF: 1 aspirin [Iris Chewable Aspirin] 81 mg tablet,chewable 81 mg PO QAM RF: 0 betamethasone dipropionate 0.05 % ointment 1 applic topical BID PRN (Reason: skin irritation) Qty: 45 RF: 2 losartan 50 mg tablet 50 mg PO QAM RF: 0 pravastatin 40 mg tablet 40 mg PO QAM RF: 0 amlodipine 10 mg tablet 10 mg PO QAM RF: 0 metformin 1,000 mg tablet 1,000 mg PO BID RF: 0 sertraline [Zoloft] 25 mg tablet 25 mg PO BEDTIME RF: 0 Levemir FlexTouch U-100 Insuln 100 unit/mL (3 mL) insulin pen See Rx Instructions .ROUTE .COMPLEX RF: 0 Invokana 300 mg tablet 300 mg PO QAM RF: 0 omeprazole 40 mg Capsule,Delayed Release(Dr/Ec) 40 mg PO QAM RF: 0 Vitamin B-12 1 tab PO QAM RF: 0 Vitamin D3 1 cap PO QAM RF: 0 vitamin E 1 cap PO QAM RF: 0 Discharge Orders: Discharge ED (Routine); Ordered 10/10/20 Ordered By: Chelo Grijalva Referrals: Juan R Purvis DO [Primary Care Provider] - Discharge Diet: Usual diet Discharge Activity: Limit activity as instructed Patient Instructions: Patellar Fracture (ED), Knee Immobilizer (ED), Opioid Safety Activity Restrictions/Additional Instructions: phlebotomy services representative will be contacting you tomorrow for an appointment with Dr. Dan, allergy and immunology specialist Return to the emergency department if you develop worsening pain, redness swelling of the left lower leg or other concerning symptoms Hydrocodone can cause constipation, may need stool softener if constipation occurs Keep the left lower extremity elevated to decrease swelling which will help decrease pain. Apply cool compresses such as ice pack to the area several times daily which will help with swelling. Never apply ice directly to the skin. Coding Level of Care Code ED Burr Sander for Chg Fwd Exam Detailed
--- NOTE | 2020-10-10 16:42 | XRR_ITS ---
PROCEDURE INFORMATION: Exam: XR Left Tibia and Fibula Exam date and time: 10/10/2020 5:09 PM Age: 74 years old Clinical indication: Injury or trauma; Fall; Blunt trauma; Lower leg; Left; Additional info: Fall, pain TECHNIQUE: Imaging protocol: XR Left tibia and fibula. Views: 2 views. COMPARISON: CR XR knees AP WB w RT lmt ORTH 07/29/2020 4:33 PM FINDINGS: Bones/joints: Moderate knee joint osteoarthritis. No fractures. No aggressive bone lesion. Soft tissues: Scattered superficial soft tissue calcifications. XR/XR tibia fibula LT 2V [id number] IMPRESSION: Negative for acute fracture.
--- NOTE | 2020-10-10 16:42 | XRR_ITS ---
PROCEDURE INFORMATION: Exam: XR Left Knee Exam date and time: 10/10/2020 5:11 PM Age: 74 years old Clinical indication: Injury or trauma; Fall; Blunt trauma; Knee; Left; Additional info: Fall, pain, swelling TECHNIQUE: Imaging protocol: XR Left knee. Views: 3 views. COMPARISON: CR XR knees AP WB w RT lmt ORTH 07/29/2020 4:33 PM FINDINGS: Bones/joints: Comminuted fracture of the patella. Femur intact. Tibia intact. Knee joint alignment unremarkable. Moderate knee joint effusion. Soft tissues: Soft tissue swelling anterior. XR/XR knee LT 3V* [id number] IMPRESSION: Comminuted fracture of the patella.
[2020-10-10] MEDS: HYDROcodone-acetaminophen 5-325 mg Tablet 1 TAB PO (17:12)
[2020-10-10 17:53] VITALS: BP 155/55; PULSE 93; RESP 18; O2SAT 95
--- NOTE | 2020-10-14 11:13 | DCPLANNER ---
manager english had message to schedule a follow up appointment for patient with ortho. manager english called the ortho clinic, spoke with Traci, gave clinic patients information. manager english was told that patients information would be printed and reviewed. Clinic will call patient with appointment information.
--- NOTE | 2020-10-15 08:41 | DCPLANNER ---
Patient had a follow up appointment scheduled for 10.14.[address] Hu - patient did attend appointment.
== END 2020-10-10 17:57 | disposition home or self-care (01) ==
PROVIDERS: Emergency Provider Nurse Practitioner Family; PCP Electrodiagnostic Medicine
DX: S82.045A Nondisplaced comminuted fracture of left patella, initial encounter for closed fracture (principal); Z79.82 Long term (current) use of aspirin; Z79.4 Long term (current) use of insulin; Z85.038 Personal history of other malignant neoplasm of large intestine; E78.5 Hyperlipidemia, unspecified; I10 Essential (primary) hypertension; E11.9 Type 2 diabetes mellitus without complications; Z96.649 Presence of unspecified artificial hip joint; W18.09XA Striking against other object with subsequent fall, initial encounter; Y92.512 Supermarket, store or market as the place of occurrence of the external cause
CPT/HCPCS: 29530; 73562; 73590; 99284

== ENCOUNTER → 2020-10-14 08:33 | Outpatient (BNVA) | payer MEDICARE, SELFPAY | PROVIDERS: PCP Electrodiagnostic Medicine; Visit Provider Specialist | DX: S82.045A Nondisplaced comminuted fracture of left patella, initial encounter for closed fracture (principal); X58.XXXA Exposure to other specified factors, initial encounter; Z46.89 Encounter for fitting and adjustment of other specified devices; S82.092D Other fracture of left patella, subsequent encounter for closed fracture with routine healing; X58.XXXD Exposure to other specified factors, subsequent encounter | CPT/HCPCS: 73562; 97760; L1832 ==

== ENCOUNTER 2020-10-14 11:28 | Outpatient (CLI) | payer MEDICARE, SELFPAY | END 2020-10-14 11:29 | disposition home or self-care (01) | LOC: SPT 11:32 | PROVIDERS: PCP Electrodiagnostic Medicine; Visit Provider Specialist | DX: Z46.89 Encounter for fitting and adjustment of other specified devices (principal); S82.092D Other fracture of left patella, subsequent encounter for closed fracture with routine healing; X58.XXXD Exposure to other specified factors, subsequent encounter | CPT/HCPCS: 97760; L1832 ==

== ENCOUNTER → 2020-10-30 13:05 | Outpatient (BNVA) | payer MEDICARE, SELFPAY | PROVIDERS: PCP Electrodiagnostic Medicine; Visit Provider Specialist | DX: S82.045A Nondisplaced comminuted fracture of left patella, initial encounter for closed fracture (principal); X58.XXXA Exposure to other specified factors, initial encounter | CPT/HCPCS: 73562 ==

== ENCOUNTER → 2020-11-13 10:26 | Outpatient (BNVA) | payer MEDICARE, SELFPAY | PROVIDERS: PCP Electrodiagnostic Medicine; Visit Provider Specialist | DX: S82.045A Nondisplaced comminuted fracture of left patella, initial encounter for closed fracture (principal); X58.XXXA Exposure to other specified factors, initial encounter; Z46.89 Encounter for fitting and adjustment of other specified devices; S82.045D Nondisplaced comminuted fracture of left patella, subsequent encounter for closed fracture with routine healing; X58.XXXD Exposure to other specified factors, subsequent encounter | CPT/HCPCS: 73562; 97760; L1812 ==

== ENCOUNTER 2020-11-13 11:36 | Outpatient (CLI) | payer MEDICARE, SELFPAY | END 2020-11-13 11:37 | disposition home or self-care (01) | LOC: SPT 11:37 | PROVIDERS: PCP Electrodiagnostic Medicine; Visit Provider Specialist | DX: Z46.89 Encounter for fitting and adjustment of other specified devices (principal); S82.045D Nondisplaced comminuted fracture of left patella, subsequent encounter for closed fracture with routine healing; X58.XXXD Exposure to other specified factors, subsequent encounter | CPT/HCPCS: 97760; L1812 ==

== ENCOUNTER → 2021-02-06 11:00 | Outpatient (BNVA) | payer MEDICARE, SELFPAY | PROVIDERS: PCP Electrodiagnostic Medicine; Visit Provider Obstetrics & Gynecology | DX: R30.0 Dysuria (principal); L90.0 Lichen sclerosus et atrophicus; L98.9 Disorder of the skin and subcutaneous tissue, unspecified; N39.0 Urinary tract infection, site not specified | CPT/HCPCS: 81000; 87077; 87086; 87184 ==

== ENCOUNTER 2021-04-23 14:03 | Outpatient (CLI) | payer MEDICARE, SELFPAY ==
--- NOTE | 2021-04-23 14:07 | XR_ITS ---
WS: [id number] Bone mineral density performed on a Air[employer], 04/23/2021 Clinical data: CLOSED FRACTURE OF PATELLA, HYPERLIPIDEMIA, DIABETES MELLITUS Findings: The first 4 lumbar vertebral bodies demonstrated the bone mineral density of 1.262 g/cm2 for a young adult T score of 0.7. There is a levoscoliosis. Measurement of the left hip reveals a bone mineral density of 0.72 g/sq cm with a young adult T score of -1.8. XR/XR DEXA axial skeleton* [id number] Impression: 1. Normal bone mineral density of the lumbar spine. 2. Osteopenia of the left hip.
== END 2021-04-23 14:04 | disposition home or self-care (01) ==
PROVIDERS: PCP Electrodiagnostic Medicine; Visit Provider Electrodiagnostic Medicine
DX: S82.009A Unspecified fracture of unspecified patella, initial encounter for closed fracture (principal); X58.XXXA Exposure to other specified factors, initial encounter; E11.9 Type 2 diabetes mellitus without complications; E78.5 Hyperlipidemia, unspecified; M85.88 Other specified disorders of bone density and structure, other site
CPT/HCPCS: 77080

== ENCOUNTER 2022-09-24 10:11 | Outpatient (CLI) | payer MEDICARE, SELFPAY ==
[2022-09-24 10:59] LABS: Erythrocyte Sedimentation Rate 2 mm/hr (0-15)
== END 2022-09-24 10:12 | disposition home or self-care (01) ==
PROVIDERS: PCP Electrodiagnostic Medicine; Visit Provider Student in an Organized Health Care Education/Training Program
DX: M31.6 Other giant cell arteritis (principal)
CPT/HCPCS: 36415; 85651; 86140

== ENCOUNTER → 2022-11-25 13:33 | Outpatient (BNVA) | payer MEDICARE, SELFPAY | PROVIDERS: PCP Electrodiagnostic Medicine; Visit Provider Dermatology | DX: L40.0 Psoriasis vulgaris (principal); L57.0 Actinic keratosis; L82.1 Other seborrheic keratosis; I87.2 Venous insufficiency (chronic) (peripheral) | CPT/HCPCS: 17000; 99214 ==

== ENCOUNTER → 2023-03-01 15:06 | Outpatient (BNVA) | payer MEDICARE, SELFPAY | PROVIDERS: PCP Electrodiagnostic Medicine; Visit Provider Dermatology | DX: L40.0 Psoriasis vulgaris (principal); L82.1 Other seborrheic keratosis; L40.59 Other psoriatic arthropathy; L57.8 Other skin changes due to chronic exposure to nonionizing radiation | CPT/HCPCS: 99214 ==

== ENCOUNTER → 2023-05-26 10:39 | Outpatient (BNVA) | payer MEDICARE, SELFPAY | PROVIDERS: PCP Electrodiagnostic Medicine; Visit Provider Nurse Practitioner Family | DX: L40.0 Psoriasis vulgaris (principal); L82.1 Other seborrheic keratosis; L40.59 Other psoriatic arthropathy; L57.8 Other skin changes due to chronic exposure to nonionizing radiation | CPT/HCPCS: 99214 ==

== ENCOUNTER 2023-08-19 13:49 | Outpatient (CLI) | payer MEDICARE, SELFPAY ==
[2023-08-19 14:08] LABS: Basophils # 0.1 10^3/uL (0.0-0.1); Basophils % 1.2 %; Eosinophils # 0.1 10^3/uL (0.0-0.8); Eosinophils % 1.9 %; Hematocrit 42.4 % (36-47); Lymphocytes # 1.7 10^3/uL (0.8-4.8); Lymphocytes % 33.3 %; Mean Corpuscular HGB Conc 33.7 g/dL (30-55); Mean Corpuscular Hemoglobin 32.4 pg (27-33); Mean Corpuscular Volume 96.1 fl (85-98); Mean Platelet Volume 9.4 fL (7.4-10.4); Monocytes # 0.5 10^3/uL (0.2-0.9); Monocytes % 10.4 %; Neutrophils # 2.73 10^3/uL (1.8-7.7); Neutrophils % 52.8 %; Nucleated Red Blood Cells % 0 %; Platelet Count 193 10^3/cmm (157-399); Red Blood Count 4.41 10^6/uL (3.85-5.65); Red Cell Distribution Width 12.5 % (12.1-15.1); White Blood Count 5.17 10^3/uL (3.29-11.43)
[2023-08-19 14:26] LABS: Alanine Aminotransferase 18 U/L (0-33); Albumin Level 3.8 g/dL (3.5-5.2); Alkaline Phosphatase 52 U/L (35-105); Anion Gap 13.9 (5-19); Aspartate Amino Transferase 22 U/L (0-32); Blood Urea Nitrogen 7 mg/dL (8-23); Calcium 9.5 mg/dL (8.5-10.5); Carbon Dioxide 28 mmol/L (22-29); Chloride 102 mmol/L (98-107); Globulin 3.1 g/dL (1.3-4.6); Glucose 131 mg/dL (65-115); Osmolality Calculated 290 mOsm/kg (285-295); Potassium 3.9 mmol/L (3.5-5.1); Sodium 140 mmol/L (136-145); Total Bilirubin 0.7 mg/dL (0.15-1.2); Total Protein 6.9 g/dL (6.6-8.7)
[2023-08-19 14:52] LABS: Hepatitis A Antibody IgM Non-Reactive (Nonreactive); Hepatitis B Core AB, Total Non-Reactive (Nonreactive); Hepatitis B Surface AB < 3.5 (11.5-1000); Hepatitis B Surface Antigen Non-Reactive (Nonreactive); Hepatitis C Virus Antibody Non-Reactive (Nonreactive)
[2023-08-21 13:04] LABS: Quantiferon Mitogen >10.00 IU/mL; Quantiferon Nil 0.03 IU/mL; Quantiferon Plus TB1 0.03 IU/mL; Quantiferon Plus TB2 0.02 IU/mL; Quantiferon TB Gold NEGATIVE (NEGATIVE)
== END 2023-08-19 13:50 | disposition home or self-care (01) ==
LOC: LAB 13:52
PROVIDERS: PCP Electrodiagnostic Medicine; Visit Provider Nurse Practitioner Family
DX: L40.0 Psoriasis vulgaris (principal)
CPT/HCPCS: 80053; 85025; 86480; 86705; 86706; 86709; 86803; 87340

== ENCOUNTER → 2023-11-18 09:58 | Outpatient (BNVA) | payer MEDICARE, SELFPAY | PROVIDERS: PCP Electrodiagnostic Medicine; Visit Provider Dermatology | DX: I87.2 Venous insufficiency (chronic) (peripheral) (principal) | CPT/HCPCS: 99214 ==

== ENCOUNTER → 2024-06-13 13:30 | Outpatient (BNVA) | payer MEDICARE, SELFPAY | PROVIDERS: PCP Nurse Practitioner; Visit Provider Nurse Practitioner Family | DX: L40.0 Psoriasis vulgaris (principal); Z79.899 Other long term (current) drug therapy; L40.59 Other psoriatic arthropathy; L81.4 Other melanin hyperpigmentation; D22.39 Melanocytic nevi of other parts of face; L57.8 Other skin changes due to chronic exposure to nonionizing radiation; L57.0 Actinic keratosis | CPT/HCPCS: 17000; 99214 ==

== ENCOUNTER → 2024-07-26 13:51 | Outpatient (BNVA) | payer MEDICARE, SELFPAY | PROVIDERS: PCP Nurse Practitioner; Visit Provider Nurse Practitioner | DX: E11.65 Type 2 diabetes mellitus with hyperglycemia (principal); Z79.4 Long term (current) use of insulin; I10 Essential (primary) hypertension; E78.5 Hyperlipidemia, unspecified; F32.9 Major depressive disorder, single episode, unspecified; K58.9 Irritable bowel syndrome, unspecified; D50.9 Iron deficiency anemia, unspecified; E53.8 Deficiency of other specified B group vitamins; E11.9 Type 2 diabetes mellitus without complications | CPT/HCPCS: 80053; 80061; 81000; 82043; 82607; 83036; 83540; 84443; 85025 ==

== ENCOUNTER → 2024-09-07 15:11 | Outpatient (BNVA) | payer MEDICARE, SELFPAY | PROVIDERS: PCP Nurse Practitioner; Visit Provider Nurse Practitioner | DX: K52.9 Noninfective gastroenteritis and colitis, unspecified (principal); N39.0 Urinary tract infection, site not specified | CPT/HCPCS: 81000; 87086 ==

== ENCOUNTER → 2024-10-03 13:57 | Outpatient (BNVA) | payer MEDICARE, SELFPAY | PROVIDERS: PCP Nurse Practitioner; Visit Provider Nurse Practitioner | DX: E11.65 Type 2 diabetes mellitus with hyperglycemia (principal); Z79.4 Long term (current) use of insulin; E55.9 Vitamin D deficiency, unspecified | CPT/HCPCS: 81003; 82306; 83036; 85025; 87086 ==

== ENCOUNTER 2024-11-28 10:01 | Outpatient (CLI) | payer MEDICARE, SELFPAY ==
--- NOTE | 2024-11-28 10:00 | MM_ITS ---
WS: [id number] BILATERAL 3D TOMOSYNTHESIS DIGITAL SCREENING MAMMOGRAPHY WITH CAD CLINICAL INFORMATION: Z12.31 - Encounter for screening mammogram for malignant ... HISTORY: Screening mammogram. No current complaints. COMPARISON: 2020 TECHNIQUE: Bilateral CC and MLO views. FINDINGS: Scattered fibroglandular densities bilaterally. No suspicious focal mass, asymmetry, calcifications, or architectural distortion. No evidence of malignancy. Vascular calcification. Incidental lucent centered calcifications. MM/MM [facility] tomosynthesis [id number] IMPRESSION: DENSITY: There are scattered areas of fibroglandular density. BI-RADS: 2 - Benign. FOLLOW UP: 1 Year Follow-up Recommend return to annual screening mammography.
== END 2024-11-28 10:02 | disposition home or self-care (01) ==
LOC: MOBLMAM 10:05
PROVIDERS: PCP Nurse Practitioner; Visit Provider Nurse Practitioner
DX: Z12.31 Encounter for screening mammogram for malignant neoplasm of breast (principal); R92.323 Mammographic fibroglandular density, bilateral breasts; R92.1 Mammographic calcification found on diagnostic imaging of breast
CPT/HCPCS: 77063; 77067

== ENCOUNTER 2024-12-12 11:11 | Outpatient (CLI) | payer MEDICARE, SELFPAY | END 2024-12-12 11:12 | disposition home or self-care (01) | PROVIDERS: PCP Nurse Practitioner; Visit Provider Nurse Practitioner Family | DX: L40.0 Psoriasis vulgaris (principal); Z79.899 Other long term (current) drug therapy; L40.59 Other psoriatic arthropathy; L81.4 Other melanin hyperpigmentation; D22.39 Melanocytic nevi of other parts of face | CPT/HCPCS: 36415; 86480; 99214 ==

== ENCOUNTER → 2024-12-27 14:06 | Outpatient (BNVA) | payer MEDICARE, SELFPAY | PROVIDERS: PCP Nurse Practitioner; Visit Provider Nurse Practitioner | DX: E11.65 Type 2 diabetes mellitus with hyperglycemia (principal); N39.0 Urinary tract infection, site not specified; Z79.4 Long term (current) use of insulin | CPT/HCPCS: 80053; 80061; 81000; 83036; 87077; 87086; 87184 ==

== ENCOUNTER → 2025-01-02 09:05 | Outpatient (BNVA) | payer MEDICARE, SELFPAY | PROVIDERS: PCP Nurse Practitioner; Visit Provider Surgery | DX: M79.9 Soft tissue disorder, unspecified (principal); L98.9 Disorder of the skin and subcutaneous tissue, unspecified | CPT/HCPCS: 99203 ==

== ENCOUNTER 2025-01-23 10:37 | Outpatient (CLI) | payer MEDICARE, SELFPAY ==
--- NOTE | 2025-01-23 10:45 | US_ITS ---
WS: [id number] Exam: US soft tissue/extremity [id number] Date/Time of Exam: 01/23/2025 10:51 AM Reason For Exam: soft tissue lesion right buttock The RIGHT buttock is targeted for ultrasound evaluation. There are numerous hyperdense ovoid densities in the subcutaneous soft tissues of the RIGHT buttock. These appear to correspond to soft tissue calcifications which can be seen on previous plain films and CT. These may be from previous infection, trauma and/or hemorrhage in the soft tissues. There were no other soft tissue masses identified. No abnormal soft tissue fluid collection was noted in this region. US/US soft tissue/extremity [id number] IMPRESSION: 1. Multiple ovoid subcutaneous soft tissue calcifications in the RIGHT buttock. These can be seen in retrospect on numerous imaging exams and appear to repres ent soft tissue calcification most likely secondary to prior infection trauma o r soft tissue hemorrhage.
== END 2025-01-23 10:38 | disposition home or self-care (01) ==
LOC: RAD 10:38
PROVIDERS: PCP Nurse Practitioner; Visit Provider Surgery
DX: M79.89 Other specified soft tissue disorders (principal)
CPT/HCPCS: 76882

== ENCOUNTER → 2025-01-30 14:46 | Outpatient (BNVA) | payer MEDICARE, SELFPAY | PROVIDERS: PCP Nurse Practitioner; Visit Provider Surgery | DX: L98.9 Disorder of the skin and subcutaneous tissue, unspecified (principal) | CPT/HCPCS: 99212 ==

== ENCOUNTER → 2025-03-20 14:07 | Outpatient (BNVA) | payer MEDICARE, SELFPAY | PROVIDERS: PCP Nurse Practitioner; Visit Provider Nurse Practitioner | DX: E11.65 Type 2 diabetes mellitus with hyperglycemia (principal); Z79.4 Long term (current) use of insulin; N39.0 Urinary tract infection, site not specified | CPT/HCPCS: 80053; 80061; 81000; 83036; 87086 ==

== ENCOUNTER → 2025-06-07 11:15 | Outpatient (BNVA) | payer MEDICARE, SELFPAY | PROVIDERS: PCP Nurse Practitioner; Visit Provider Nurse Practitioner | DX: E11.65 Type 2 diabetes mellitus with hyperglycemia (principal); I10 Essential (primary) hypertension; Z79.4 Long term (current) use of insulin | CPT/HCPCS: 80053; 82043; 83036 ==

== ENCOUNTER → 2025-07-10 10:57 | Outpatient (BNVA) | payer MEDICARE, SELFPAY | PROVIDERS: PCP Nurse Practitioner; Visit Provider Nurse Practitioner Family | DX: D18.01 Hemangioma of skin and subcutaneous tissue (principal); L81.4 Other melanin hyperpigmentation; L40.0 Psoriasis vulgaris; L57.0 Actinic keratosis | CPT/HCPCS: 17000; 99214 ==